=== PATIENT | male | born 1995 | race Caucasian/White ===

== ENCOUNTER 2018-03-20 15:51 | Emergency (ER) | END 2018-03-20 17:31 | disposition home or self-care (01) ==

== ENCOUNTER 2019-03-15 20:14 | Emergency (ER) | payer SELFPAY ==
[~2019-03-15] VITALS: Ht 182.9 cm; Wt 102.9 kg
[~2019-03-15 20:14] MED LIST: PRED20TA PO; TRIA15OI9 TOP
[2019-03-15 20:16] VITALS: Ht 182.9 cm; Wt 102.9 kg
[2019-03-16] MEDS ORDERED: IBUPROFEN 600 MG TAB PO ONE (01:00)
--- NOTE | 2019-03-16 01:38 | ERD ---
ER Documentation Chief Complaint Chief Complaint L ANKLE PAIN X'S 1 DA S/P SPORTS INJURY HPI 23-year-old male presents with complaint of left ankle pain. States that he was playing sports today when he twisted his ankle. Denies any numbness or weakness. Denies any treatments. Denies any bleeding. ROS All systems reviewed and are negative except as per history of present illness. Medications Home Meds Active Scripts Ibuprofen* (Motrin*) 600 Mg Tab, 600 MG PO Q6, #30 TAB Prov:PREMA WADDELL 03/16/19 Triamcinolone Acetonide (Triamcinolone Acetonide) 0.5% - 15 Gm Oint..gm., 1 APPLIC TOP BID, #1 TUB Prov:MARI KATZS A. DO 03/20/18 Prednisone* (Prednisone*) 20 Mg Tab, 60 MG PO DAILY for 5 Days, TAB Prov:PASCUAL KATZSTMAMES AChani DO 03/20/18 Allergies Allergies: Coded Allergies: No Known Allergy (Unverified , 03/20/18) PMhx/Soc History of Surgery: No Anesthesia Reaction: No Hx Neurological Disorder: No Hx Respiratory Disorders: No Hx Cardiac Disorders: No Hx Psychiatric Problems: No Hx Miscellaneous Medical Probl: No Hx Alcohol Use: No Hx Substance Use: No Hx Tobacco Use: No Smoking Status: Never smoker FmHx Family History: No diabetes, No coronary disease, No other Physical Exam Vitals Vital Signs Date Temp Pulse Resp B/P (MAP) Pulse Ox O2 O2 Flow FiO2 Time Delivery Rate 03/15/19 98.6 90 18 150/79 98 20:16 (102) Physical Exam Const: No acute distress Head: Atraumatic Eyes: Normal Conjunctiva ENT: Normal External Ears, Nose and Mouth. Neck: Full range of motion. No meningismus. Resp: Clear to auscultation bilaterally Cardio: Regular rate and rhythm, no murmurs Abd: Soft, non tender, non distended. Normal bowel sounds Skin: No petechiae or rashes Back: No midline or flank tenderness Left ankle: Edema noted to dorsal aspect the left foot as well as medial malleolus area. There is tenderness to palpation over the medial malleolus and dorsum of left foot as well. There is no underlying bony deformity. There is no erythema, ecchymosis, or mariana deformity noted. Overlying skin is intact. Compartments are soft and warm. There is no pallor or cyanosis. Range of motion, distal pulses, and distal sensation is intact. There is normal cap refill. Neur: Awake and alert Psych: Normal Mood and Affect Results 24 hrs Current Medications Medications Dose Sig/Adrián Start Time Status Last (Trade) Ordered Route PRN Stop Time Admin Dose Reason Admin Ibuprofen 600 mg ONCE ONCE 03/16/19 DC 03/16/19 (Motrin) PO 01:00 00:42 03/16/19 01:01 Procedures/MDM DIAGNOSTIC IMAGING REPORT Patient: LEONIDES NAVA : 1995 Age: 23 Sex: M MR #: [id number] DOS: 03/16/19 0034 Ordering MD: PREMA WADDELL Location: [facility] Room/Bed: PROCEDURE: XR Ankle. CLINICAL INDICATION: 23 years of age, male. Pain. Trauma. TECHNIQUE: Three views of the left ankle. COMPARISON: None available. FINDINGS: Small bone density at the posterior aspect of the talus may represent an unfused os trigonum or a fracture of the posterior process of the talus. No other acute fractures are identified. Normal alignment on this non-stressed view. Negative for significant soft tissue swelling. Additional comment: None. IMPRESSION: Small bone density at the posterior aspect of the talus may represent an unfused os trigonum versus an acute fracture of the posterior process of the talus. If there is focal pain, recommend further evaluation with CT. RPTAT: HCTS Physician Leila Date Time Electronically viewed and signed by Physician Leila on 03/16/2019 0 1:37 CS/ CC: PREMA WADDELL [phone] MDM: X-ray was positive for possible talus fracture with clinically correlates with patient's area of pain as well as injury. I discussed the case with my supervising physician Dr. Henry when he stated that CT was unnecessary despite radiologist recommendations and patient could be treated with a short leg splint and sent for Ortho follow-up. I have low suspicion for neurovascular compromise, compartment syndrome, osteomyelitis, septic joint, DVT, or other emergent condition. At this time, patient is stable for discharge and outpatient management. I have instructed the patient to follow-up with orthopedist within 24 hours. I have discussed with the patient the possibility of needing to see a specialist for further workup and imaging studies if symptoms persist. I have instructed the patient to promptly return to the ER for any new or worsening symptoms including but not limited to increased pain, fever, nausea, vomiting, weakness or LOC. The patient and/or family expressed understanding of and agreement with this plan. All questions were answered. Home care instructions were provided. DISCLAIMER: Inadvertent spelling and grammatical errors are likely due to EHR/dictation software use and do not reflect on the overall quality of patient care. Also, please note that the electronic time recorded on this note does not necessarily reflect the actual time of the patient encounter. Departure Diagnosis: Primary Impression: Talus fracture Encounter type: initial encounter Fracture type: closed Talus location: posterior process Fracture alignment: nondisplaced Laterality: left Qualified Codes: S92.135A - Nondisplaced fracture of posterior process of left talus, initial encounter for closed fracture Condition: Stable PREMA WADDELL Mar 16, 2019 01:38
[2019-03-16] MEDS ORDERED: IBUP-1542 PO (02:03)
[2019-03-16 02:30] VITALS: BP 148/82; PULSE 70; RESP 18
== END 2019-03-16 02:30 | disposition home or self-care (01) ==
LOC: FTE 20:14
DX: S92.135A Nondisplaced fracture of posterior process of left talus, initial encounter for closed fracture (principal); X50.1XXA Overexertion from prolonged static or awkward postures, initial encounter; Y92.9 Unspecified place or not applicable
CPT/HCPCS: 73610

== ENCOUNTER 2019-08-04 11:31 | Emergency (ER) | payer MEDICAID, OTHER ==
[~2019-08-04] VITALS: Ht 182.9 cm; Wt 105.6 kg
[~2019-08-04 11:31] MED LIST changes: +IBUP-1542 PO; +TRIA15CR55 TOP
[2019-08-04 12:10] VITALS: BP 146/84; PULSE 67; RESP 18; Ht 182.9 cm; Wt 105.6 kg
== END 2019-08-04 12:35 | disposition home or self-care (01) ==
LOC: E/R 11:31
DX: R21 Rash and other nonspecific skin eruption (principal)
CPT/HCPCS: 99283